=== PATIENT | male | born 1960 | race Caucasian/White ===

== ENCOUNTER 2018-04-04 13:16 | Observation (INO) | payer SELFPAY ==
[2018-04-04] VITALS (7 sets, daily range): BP systolic 124–172; BP diastolic 64–79; PULSE 49–67; RESP 16–18; TEMP 97.5–98.1; O2SAT 94–99
[~2018-04-04] VITALS: Ht 182.9 cm; Wt 81.8 kg
[~2018-04-04 13:16] MED LIST: CIPR-9 PO
--- NOTE | 2018-04-04 13:44 | PD ---
HPI Chief Complaint: Altered Mental Status Time Seen by Provider: 13:28 Travel History International Travel<30 days: No Contact w/Intl Traveler<30days: No Traveled to known affect area: No History of Present Illness HPI Patient brought to the emergency department for altered mental status. Sitting on the side of the road confused and bystanders called EMS. He denies headache , chest pain, nausea, vomiting, shortness of breath, abdominal pain, but reports active fever. Also states he has been noncompliant with his Dilantin 2 year had headache a couple days ago. COUNTS INCLUDE 234 BEDS AT THE [facility] Past Medical History Cirrhosis: Yes Hepatitis: Yes ("HEP. B") Respiratory: Yes (ASTHMA) Seizures: Yes Past Surgical History Cholecystectomy: Yes Other Surgery: Yes (GI BLEED) Social History Alcohol Use: Yes Tobacco Use: Yes Substance Use: No Allergies-Medications (Allergen,Severity, Reaction): Coded Allergies: No Known Allergies (Unverified , 08/16/16) Reported Meds & Prescriptions Reported Meds & Active Scripts Active No Active Prescriptions or Reported Medications Review of Systems Except as stated in HPI: all other systems reviewed are Neg Physical Exam Narrative GENERAL: No acute distress. SKIN: Focused skin assessment warm/dry. HEAD: Atraumatic. Normocephalic. EYES: Pupils equal and round. No scleral icterus. No injection or drainage. Extraocular muscles intact bilaterally ENT: No nasal bleeding or discharge. Mucous membranes pink and moist. NECK: Trachea midline. No JVD. CARDIOVASCULAR: Regular rate and rhythm. No murmur appreciated. RESPIRATORY: No accessory muscle use. Clear to auscultation. Breath sounds equal bilaterally. GASTROINTESTINAL: Abdomen soft, non-tender, nondistended. Hepatic and splenic margins not palpable. MUSCULOSKELETAL: No obvious deformities. No clubbing. No cyanosis. No edema. NEUROLOGICAL: Awake and alert. No obvious cranial nerve deficits. Motor grossly within normal limits. Normal speech. Oriented to person and place but not time PSYCHIATRIC: Appropriate mood and affect; insight and judgment normal. Data Data Last Documented VS Vital Signs Date Time Temp Pulse Resp B/P (MAP) Pulse Ox O2 Delivery O2 Flow Rate FiO2 04/04/18 14:23 66 18 96 Room Air 04/04/18 13:28 98.1 Orders Orders Electrocardiogram (04/04/18 13:38) Ammonia (04/04/18 13:38) Complete Blood Count With Diff (04/04/18 13:38) Comprehensive Metabolic Panel (04/04/18 13:38) Creatine Kinase (Cpk) (04/04/18 13:38) Prothrombin Time / Inr (Pt) (04/04/18 13:38) Act Partial Throm Time (Ptt) (04/04/18 13:38) Troponin I (04/04/18 13:38) Urinalysis - C+S If Indicated (04/04/18 13:38) Chest, Single Ap (04/04/18 13:38) Ct Brain W/O Iv Contrast(Rout) (04/04/18 13:38) Ecg Monitoring (04/04/18 13:38) Iv Access Insert/Monitor (04/04/18 13:38) Oximetry (04/04/18 13:38) Sodium Chloride 0.9% Flush (Ns Flush) (04/04/18 13:45) Drug Screen, Random Urine (04/04/18 13:38) Alcohol (Ethanol) (04/04/18 13:38) Tylenol (Acetaminophen) (04/04/18 13:38) Salicylates (Aspirin) (04/04/18 13:38) Ckmb (Isoenzyme) Profile (04/04/18 13:38) Lactic Acid (04/04/18 13:44) B-Type Natriuretic Peptide (04/04/18 14:52) Admit Order (Ed Use Only) (04/04/18 16:08) Labs Laboratory Tests Test 04/04/18 14:07 04/04/18 15:42 White Blood Count 6.5 TH/MM3 Red Blood Count 4.60 MIL/MM3 Hemoglobin 14.1 GM/DL Hematocrit 41.8 % Mean Corpuscular Volume 90.9 FL Mean Corpuscular Hemoglobin 30.6 PG Mean Corpuscular Hemoglobin Concent 33.7 % Red Cell Distribution Width 14.3 % Platelet Count 227 TH/MM3 Mean Platelet Volume 8.0 FL Neutrophils (%) (Auto) 67.6 % Lymphocytes (%) (Auto) 23.4 % Monocytes (%) (Auto) 5.5 % Eosinophils (%) (Auto) 2.1 % Basophils (%) (Auto) 1.4 % Neutrophils # (Auto) 4.4 TH/MM3 Lymphocytes # (Auto) 1.5 TH/MM3 Monocytes # (Auto) 0.4 TH/MM3 Eosinophils # (Auto) 0.1 TH/MM3 Basophils # (Auto) 0.1 TH/MM3 CBC Comment DIFF FINAL Differential Comment Prothrombin Time 10.6 SEC Prothromb Time International Ratio 1.0 RATIO Activated Partial Thromboplast Time 30.4 SEC Blood Urea Nitrogen 27 MG/DL Creatinine 0.83 MG/DL Random Glucose 64 MG/DL Total Protein 7.2 GM/DL Albumin 3.5 GM/DL Calcium Level 8.1 MG/DL Alkaline Phosphatase 93 U/L Aspartate Amino Transf (AST/SGOT) 24 U/L Alanine Aminotransferase (ALT/SGPT) 29 U/L Total Bilirubin 1.5 MG/DL Sodium Level 143 MEQ/L Potassium Level 3.5 MEQ/L Chloride Level 112 MEQ/L Carbon Dioxide Level 19.0 MEQ/L Anion Gap 12 MEQ/L Estimat Glomerular Filtration Rate 95 ML/MIN Lactic Acid Level 0.8 mmol/L Ammonia 36 MCMOL/L Total Creatine Kinase 53 U/L Troponin I LESS THAN 0.02 NG/ML Salicylates Level 3.6 MG/DL Acetaminophen Level LESS THAN 2.0 MCG/ML Ethyl Alcohol Level LESS THAN 3 MG/DL Urine Color Rekha Urine Turbidity HAZY Urine pH 5.0 Urine Specific [place] 1.027 Urine Protein NEG mg/dL Urine Glucose (UA) NEG mg/dL Urine Ketones 80 OR GREATER mg/dL Urine Occult Blood NEG Urine Nitrite POS Urine Bilirubin NEG Urine Urobilinogen 4.0 OR GREATER mg/dL Urine Leukocyte Esterase TRACE Urine RBC 1 /hpf Urine WBC 24 /hpf Urine Bacteria MANY /hpf Urine Mucus MANY /lpf Microscopic Urinalysis Comment CATH-CULTURE IND Urine Opiates Screen NEG Urine Barbiturates Screen NEG Urine Amphetamines Screen NEG Urine Benzodiazepines Screen NEG Urine Cocaine Screen NEG Urine Cannabinoids Screen NEG MDM Medical Decision Making Medical Screen Exam Complete: Yes Emergency Medical Condition: Yes Interpretation(s) Labs: CBC wnl, slightly increased ammonia, elevated T bili; UA-+ bacteria ECG: Sinus bradycardia 56, nightly 2, 3, aVF, T-wave inversion in aVL Last Impressions Head CT 04/04/18 133 Signed Impressions: CONCLUSION: 1. No acute intracranial abnormality. Chest X-Ray 04/04/181337 Signed Impressions: CONCLUSION: Mild compensated cardiomegaly Differential Diagnosis CVA, seizure, UTI, ACS, sepsis Narrative Course Patient presents to the emergency department altered mental status. Placed on furrier apprentice, IV access obtained, and labs/chest x-ray/head CT/EKG ordered. Given 1gram IV Rocephin for UTI, based on prior urine cx. Diagnosis Primary Impression: UTI (urinary tract infection) Qualified Codes: N39.0 - Urinary tract infection, site not specified Additional Impression: Altered mental status Qualified Codes: R41.82 - Altered mental status, unspecified Admitting Information Admitting Physician Requests: Observation Scripts No Active Prescriptions or Reported Meds Condition: Roxana Fuchs MD Apr 04, 2018 13:44
[2018-04-04] MEDS ORDERED: SODIUM CHLORIDE 0.9% FLUSH 10 ML FLUSH IV FLUSH PRN (13:45)
[2018-04-04 14:18] LABS: AUTOMATED NEUTROPHIL # 4.4 TH/MM3 (1.8-7.7); BASOPHIL # 0.1 TH/MM3 (0-0.2); BASOPHIL % 1.4 % (0.0-2.0); EOSINOPHIL # 0.1 TH/MM3 (0-0.4); EOSINOPHIL % 2.1 % (0.0-4.0); HEMATOCRIT 41.8 % (39.0-51.0); HEMOGLOBIN 14.1 GM/DL (13.0-17.0); LYMPH % 23.4 % (9.0-44.0); LYMPHOCYTE # 1.5 TH/MM3 (1.0-4.8); MEAN CELL VOLUME 90.9 FL (80.0-100.0); MEAN CORPUSCULAR HEMOGLOBIN 30.6 PG (27.0-34.0); MEAN CORPUSCULAR HGB CONC 33.7 % (32.0-36.0); MONO % 5.5 % (0.0-8.0); MONOCYTE # 0.4 TH/MM3 (0-0.9); NEUT % 67.6 % (16.0-70.0); PLATELET COUNT 227 TH/MM3 (150-450); RED CELL DISTRIBUTION WIDTH 14.3 % (11.6-17.2); WHITE BLOOD COUNT 6.5 TH/MM3 (4.0-11.0)
--- NOTE | 2018-04-04 14:24 | RADRPT ---
EXAM DATE: 04/04/2018 2:22 PM EDT AGE/SEX: 58 years / Male INDICATIONS: Syncope. CLINICAL DATA: This is the patient's initial encounter. Patient reports that signs and symptoms have been present for 1 day and indicates a pain score of Nonresponsive. MEDICAL/SURGICAL HISTORY: Non-responsive. Keeps falling asleep Non-responsive. COMPARISON: No prior exams available for comparison. FINDINGS: Heart is enlarged. Pulmonary vascularity is normal. There is no alveolar consolidation pleural effusi on or pneumothorax. The portion of the bony skeleton visualized is unremarkable. CONCLUSION: Mild compensated cardiomegaly Electronically signed by: Ramírez Cagle MD 04/04/2018 2:23 PM EDT
[2018-04-04 14:29] LABS: PROTHROMBIN TIME - PATIENT 10.6 SEC (9.8-11.6)
[2018-04-04 14:40] LABS: ALBUMIN 3.5 GM/DL (3.4-5.0); ALT (GPT) 29 U/L (12-78); AST (GOT) 24 U/L (15-37); BLOOD UREA NITROGEN 27 MG/DL (7-18); CALCIUM 8.1 MG/DL (8.5-10.1); CHLORIDE 112 MEQ/L (98-107); CREATININE 0.83 MG/DL (0.60-1.30); GLOMERULAR FILTRATION RATE 95 ML/MIN (>89); GLUCOSE,RANDOM 64 MG/DL (74-106); SODIUM (NA) 143 MEQ/L (136-145)
[2018-04-04 14:49] LABS: ALKALINE PHOSPHATASE 93 U/L (45-117); TOTAL BILIRUBIN ADULT 1.5 MG/DL (0.2-1.0); TOTAL PROTEIN 7.2 GM/DL (6.4-8.2); TROPONIN I LESS THAN 0.02 NG/ML (0.02-0.05)
[2018-04-04 14:54] LABS: ACETAMINOPHEN LESS THAN 2.0 MCG/ML (10.0-30.0)
--- NOTE | 2018-04-04 15:57 | RADRPT ---
EXAM DATE: 04/04/2018 3:40 PM EDT AGE/SEX: 58 years / Male INDICATIONS: Altered mental status. CLINICAL DATA: This is the patient's initial encounter. Patient reports that signs and symptoms have been present for 1 day and indicates a pain score of 0/10. MEDICAL/SURGICAL HISTORY: Hepatitis B. Cirrhosis. Seizures. None. RADIATION DOSE: 56.35 CTDI (mGy) COMPARISON: No prior exams available for comparison. TECHNIQUE: CT of the head without contrast. Using automated exposure control and adjustment of the mA and/or kV according to patient size, radiation dose was kept as low as reasonably achievable to ob tain optimal diagnostic quality images. DICOM format image data is available electronically for revi ew and comparison. FINDINGS: Cerebrum: Mild diffuse cerebral atrophy. The ventricles are normal for degree of atrophy. No evidenc e of midline shift, mass lesion, hemorrhage or acute infarction. No extraaxial fluid collections are seen. Posterior Fossa: The cerebellum and brainstem are intact. The 4th ventricle is midline. The cerebe llopontine angle is unremarkable. Extracranial: The visualized portion of the orbits is intact. Mild mucoperiosteal thickening of the ethmoid air cells. Skull: The calvaria is intact. No evidence of skull fracture. CONCLUSION: 1. No acute intracranial abnormality. Electronically signed by: Lino Nielson MD 04/04/2018 3:56 PM EDT
[2018-04-04] MEDS ORDERED: SENNOSIDES 8.6 MG TAB PO PRN (16:15)
[2018-04-04] MEDS ORDERED: ONDANSETRON HCL 4 MG/2 ML VIAL IVP PRN (16:15)
[2018-04-04] MEDS ORDERED: NALOXONE HCL 0.4 MG/ML AMP IV PUSH PRN (16:15)
[2018-04-04] MEDS ORDERED: MAGNESIUM HYDROXIDE SUSP 30 ML CUP PO PRN (16:15)
[2018-04-04] MEDS ORDERED: BISACODYL 10 MG SUPP RECTAL PRN (16:15)
[2018-04-04] MEDS ORDERED: LACTULOSE SYRUP 20 GM/30 ML CUP PO PRN (16:15)
[2018-04-04] MEDS ORDERED: ACETAMINOPHEN 325 MG TAB PO PRN (16:15)
[2018-04-04 16:17] LABS: BACTERIA, URINE MANY /hpf; BILIRUBIN, URINE NEG (NEG); BLOOD, URINE NEG (NEG); GLUCOSE,URINE NEG (NEG); KETONE, URINE 80 OR GREATER mg/dL (NEG); MUCUS URINE MANY /lpf (OCC); NITRITE,URINE POS (NEG); URINE COLOR Amber (YELLW/STRAW); URINE LEUKOCYTE ESTERASE TRACE (NEG)
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
[2018-04-04] MEDS: cefTRIAXone INJ 1,000 MG in SODIUM CHLORIDE 0.9% INJ 100 ML IV SCH (17:14)
[2018-04-04] MEDS: NS + KCL 20 MEQ INJ 1,000 ML IV SCH (17:14)
[2018-04-04] MEDS: ENOXAPARIN SODIUM 40 MG/0.4 ML SYRINGE SQ SCH (17:15)
--- NOTE | 2018-04-04 19:36 | EKG ---
Date Performed: 04/04/2018 Time Performed: 14:43:59 PTAGE: 58 years EKG: SINUS BRADYCARDIA POSSIBLE INFERIOR MYOCARDIAL INFARCTION ABNORMAL ECG NO PREVIOUS TRACING DOCTOR: James Wilson Interpretating Date/Time 04/04/2018 19:34:27
[2018-04-04] MEDS: DOCUSATE SODIUM 50 MG/SENNA 8.6 MG TAB PO SCH (20:15)
--- NOTE | 2018-04-04 21:31 | EKG ---
Date Performed: 04/04/2018 Time Performed: 20:43:11 PTAGE: 58 years EKG: Sinus rhythm Cannot rule out INFERIOR MYOCARDIAL INFARCTION ABNORMAL ECG No significant change from prior electr ocardiogram. PREVIOUS TRACING : 04/04/2018 14.43 DOCTOR: James Wilson Interpretating Date/Time 04/04/2018 21:30:17
[2018-04-04 21:43] LABS: TROPONIN I LESS THAN 0.02 NG/ML (0.02-0.05)
[2018-04-05] VITALS (9 sets, daily range): BP systolic 120–156; BP diastolic 62–72; PULSE 48–94; RESP 14–16; TEMP 97.4–98.9; O2SAT 92–99
[2018-04-05 03:57] LABS: BICARBONATE 22.7 MEQ/L (21.0-32.0); CALCIUM 8.5 MG/DL (8.5-10.1); CREATININE 0.84 MG/DL (0.60-1.30)
[2018-04-05 04:01] LABS: TROPONIN I LESS THAN 0.02 NG/ML (0.02-0.05)
[2018-04-05] MEDS: NS + KCL 20 MEQ INJ 1,000 ML IV SCH ×2 (04:46→17:21)
[2018-04-05] MEDS: DOCUSATE SODIUM 50 MG/SENNA 8.6 MG TAB PO SCH ×2 (09:00→22:19)
--- NOTE | 2018-04-05 10:17 | HHI.PR ---
Subjective Remarks The patient is in bed says he feels tired however he was able to ambulate fairly well with physical therapy. He is more awake and alert. No nausea vomiting eating well. No complaints with urination at this time. Not coughing no fever or chills. Objective Vitals Vital Signs Date Time Temp Pulse Resp B/P (MAP) Pulse Ox O2 Delivery O2 Flow Rate FiO2 04/05/18 09:02 97.4 60 16 156/70 (98) 97 04/05/18 08:06 96 21 04/05/18 04:44 97.8 57 16 128/62 (84) 99 04/05/18 02:44 53 04/05/18 01:30 97.7 48 16 139/68 (91) 98 04/04/18 21:39 49 04/04/18 20:05 98.1 66 18 138/64 (88) 97 04/04/18 17:41 97.5 64 16 172/79 (110) 98 04/04/18 16:43 04/04/18 16:11 55 16 124/65 (84) 99 Room Air 04/04/18 14:23 66 18 96 Room Air 04/04/18 13:28 67 18 95 Room Air 04/04/18 13:28 98.1 67 18 148/73 (98) 97 Room Air 04/04/18 13:25 98.1 67 18 148/73 (98) 94 Result Diagram: 04/04/18 1407 04/05/18 0228 Imaging Last Impressions Head CT 04/04/18 1338 Signed Impressions: CONCLUSION: 1. No acute intracranial abnormality. Chest X-Ray 04/04/18 1338 Signed Impressions: CONCLUSION: Mild compensated cardiomegaly Objective Remarks GENERAL: This is a well-nourished, well-developed unkempt lethargic male patient, in no apparent distress. More awake and alert. SKIN: Warm and dry. +blisters on bilateral feet CARDIOVASCULAR: Regular rate and rhythm without murmurs, gallops, or rubs. RESPIRATORY: Clear to auscultation. Breath sounds equal bilaterally. No wheezes , rales, or rhonchi. GASTROINTESTINAL: Abdomen soft, non-tender, nondistended. No hepato-splenomegaly , or palpable masses. No guarding. MUSCULOSKELETAL: Extremities without clubbing, cyanosis, or edema. No joint tenderness, effusion, or edema noted. No calf tenderness. NEUROLOGICAL: Awake and alert. Cranial nerves II through XII intact. Motor and sensory grossly within normal limits. No focal neurologic findings. Normal speech. A/P Assessment and Plan 58 yo male with a history of hepatitis B, cirrhosis, history of previous GI bleed, seizure disorder and bipolar disorder who was brought into the ED with altered mental status. Acute encephalopathy, multifactorial secondary to dehydration and urinary tract infection Head CT without any acute intracranial abnormality UDS and ethyl alcohol neg Ammonia level 36 Initial trop neg Obtain serial cardiac enzymes and EKGs Neuro checks Monitor on cardiac telemetry Fall and aspiration precautions Urinary tract infection UA highly suggestive of UTI with ketonuria, positive nitrates, trace leukocytes , 24 white blood cells and many bacteria Start patient on IV Rocephin Follow-up on final urine culture results Dehydration Metabolic acidosis BUN 27 IVF hydration Hypoglycemia, suspect secondary to malnourished/poor po intake Accucheks ordered Hx of bipolar disorder not on any medications Consult psychiatry, appreciate assistance Hx of seizure d/o No recent seizure activity Seizure precautions DVT prophylaxis: Lovenox sq Discussed Condition With Patient, nurse Jeimy Casiano MD Apr 05, 2018 10:17
--- NOTE | 2018-04-05 13:31 | EKG ---
Date Performed: 04/05/2018 Time Performed: 01:41:49 PTAGE: 58 years EKG: SINUS BRADYCARDIA POSSIBLE INFERIOR MYOCARDIAL INFARCTION BORDERLINE ECG No significant estuardo nge from prior electrocardiogram. PREVIOUS TRACING : 04/04/2018 20.43 DOCTOR: James Wilson Interpretating Date/Time 04/05/2018 13:30:42
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
[2018-04-05] MEDS: cefTRIAXone INJ 1,000 MG in SODIUM CHLORIDE 0.9% INJ 100 ML IV SCH (17:21)
[2018-04-05] MEDS: ENOXAPARIN SODIUM 40 MG/0.4 ML SYRINGE SQ SCH (19:38)
[2018-04-05] MEDS: risperiDONE 0.5 MG TAB PO SCH (22:19)
[2018-04-06] VITALS (7 sets, daily range): BP systolic 131–177; BP diastolic 65–85; PULSE 45–62; RESP 16–18; TEMP 97.7–98.5; O2SAT 96–98
[2018-04-06] MEDS: NS + KCL 20 MEQ INJ 1,000 ML IV SCH (04:17)
[2018-04-06] MEDS ORDERED: CIPR500T2 PO (07:48)
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
[2018-04-06] MEDS: DOCUSATE SODIUM 50 MG/SENNA 8.6 MG TAB PO SCH (08:49)
[2018-04-06] MEDS: risperiDONE 0.5 MG TAB PO SCH (08:49)
== END 2018-04-06 13:48 | disposition home or self-care (01) ==
LOC: NEPE 13:16 → NEDA 16:09 → NEPFCDU 16:45
PROVIDERS: ADMIT Hospitalist; ATTEND Hospitalist
DX: N39.0 Urinary tract infection, site not specified (principal); R41.82 Altered mental status, unspecified; R50.9 Fever, unspecified; Z91.19 Patient's noncompliance with other medical treatment and regimen; R51 Headache; K74.60 Unspecified cirrhosis of liver; J45.909 Unspecified asthma, uncomplicated; B19.10 Unspecified viral hepatitis B without hepatic coma; R56.9 Unspecified convulsions; F17.210 Nicotine dependence, cigarettes, uncomplicated; R00.1 Bradycardia, unspecified; I51.7 Cardiomegaly; F31.9 Bipolar disorder, unspecified; M79.671 Pain in right foot; M79.672 Pain in left foot; E86.0 Dehydration; E87.2 Acidosis; E16.2 Hypoglycemia, unspecified; F05 Delirium due to known physiological condition; B96.20 Unspecified Escherichia coli [E. coli] as the cause of diseases classified elsewhere; R94.31 Abnormal electrocardiogram [ECG] [EKG]; Z59.0 Homelessness
CPT/HCPCS: 70450; 71045; 80048; 80053; 80307; 81001; 82140; 82550; 83605; 83880; 84484; 85025; 85610; 85730; 87077; 87086; 87186; 93005; 96365; 96366; 96367; 96368; 97161; 99285; G0378; G8987; G8988; G8989; J0696; J1650; J3480